=== PATIENT | male | born 1990 | race Caucasian/White ===

== ENCOUNTER 2016-07-12 19:22 | Emergency (ER) | payer OTHER ==
[~2016-07-12 19:22] MED LIST: ASPIRIN CHEWABL81 MG PO; BUMEX 1MG TABLET1 MG PO; COLACE 100MG C100 MG PO; COREG 3.125M3.125 MG PO; COUMADIN 2.5MG2.5 MG PO; ENSURE LIQUID237 ML PO; FUROSEMIDE20 MG PO; HABITROL 14 MG P1 EA TD; LANOXIN TAB0.125 MG PO; LEVAQUIN500 MG PO; LISINOPRIL2.5 MG PO; LOPRESSOR 25 MG25 MG PO; MIRALAX PACK 171 PKT PO; SPIRONOLACTONE25 MG PO; TESSALON PERLE100 MG PO; TOPROL XL50 MG PO; TRAMADOL HCL50 MG PO; TYLENOL 325MG325 MG PO; ULTRAM50 MG PO; ZOFRAN ODT 4 MG4 MG PO
== END 2016-07-12 20:07 | disposition home or self-care (01) ==
LOC: ER1 19:22
DX: K04.7 Periapical abscess without sinus (principal); Z86.79 Personal history of other diseases of the circulatory system; Z95.810 Presence of automatic (implantable) cardiac defibrillator; F17.210 Nicotine dependence, cigarettes, uncomplicated; Z88.0 Allergy status to penicillin; Z79.899 Other long term (current) drug therapy
CPT/HCPCS: 99282

== ENCOUNTER 2016-09-03 17:12 | Inpatient (IN) | payer OTHER ==
[~2016-09-03] VITALS: Ht 185.4 cm; Wt 72.6 kg
[2016-09-03 21:01] LABS: BUN/CREATININE RATIO 19 (0-10)
[2016-09-04 03:27] LABS: HEMOGLOBIN 15.1 gm/dl (14.0-17.5); RED BLOOD COUNT 5.12 M/UL (4.20-5.50)
[2016-09-04 03:35] LABS: BUN/CREATININE RATIO 18 (0-10)
[2016-09-05 04:02] LABS: RED BLOOD COUNT 4.8 M/UL (4.20-5.50)
[2016-09-05 04:03] LABS: WHITE BLOOD COUNT 8.9 K/UL (4.5-11.0)
[2016-09-05 04:16] LABS: BUN/CREATININE RATIO 33 (0-10)
[2016-09-06 03:59] LABS: BUN/CREATININE RATIO 29 (0-10); HEMOGLOBIN 12.8 gm/dl (14.0-17.5); RED BLOOD COUNT 4.36 M/UL (4.20-5.50); WHITE BLOOD COUNT 8.5 K/UL (4.5-11.0)
[2016-09-08 04:30] LABS: HEMOGLOBIN 13.4 gm/dl (14.0-17.5); RED BLOOD COUNT 4.62 M/UL (4.20-5.50); WHITE BLOOD COUNT 6.9 K/UL (4.5-11.0)
[2016-09-08 04:38] LABS: BUN/CREATININE RATIO 23 (0-10)
[2016-09-08] MEDS ORDERED: FLORINEF 0.1 M0.1 MG PO (13:29)
[2016-09-08] MEDS ORDERED: TYLENOL 650 MG650 MG PO (13:32)
[2016-09-08] MEDS ORDERED: FERROUS SULFAT325 M2 PO (13:36)
== END 2016-09-08 17:01 | disposition home or self-care (01) | DRG 309 ==
LOC: CCU 17:12 → M/S 09-07 11:35
PROVIDERS: ADMIT Internal Medicine Infectious Disease
DX: I47.1 Supraventricular tachycardia (principal); I50.22 Chronic systolic (congestive) heart failure; I42.0 Dilated cardiomyopathy; E87.2 Acidosis; R57.9 Shock, unspecified; E87.6 Hypokalemia; E83.42 Hypomagnesemia; F11.10 Opioid abuse, uncomplicated; E87.5 Hyperkalemia; B18.2 Chronic viral hepatitis C; I34.0 Nonrheumatic mitral (valve) insufficiency; D69.59 Other secondary thrombocytopenia; R50.9 Fever, unspecified; R16.1 Splenomegaly, not elsewhere classified; D72.829 Elevated white blood cell count, unspecified; R07.89 Other chest pain; F17.210 Nicotine dependence, cigarettes, uncomplicated; Z91.14 Patient's other noncompliance with medication regimen; Z91.19 Patient's noncompliance with other medical treatment and regimen; Z95.810 Presence of automatic (implantable) cardiac defibrillator; Z79.82 Long term (current) use of aspirin; Z79.899 Other long term (current) drug therapy; Z88.0 Allergy status to penicillin; Z80.1 Family history of malignant neoplasm of trachea, bronchus and lung; Z82.49 Family history of ischemic heart disease and other diseases of the circulatory system
CPT/HCPCS: ECHO; 36415; 71010; 71020; 76705; 80048; 80053; 80074; 80307; 81001; 82550; 82553; 82607; 82728; 82746; 83540; 83550; 83605; 83735; 84484; 85025; 85027; 87040; 87390; 93005; 93306; J1885; J2550; J7030; J7040; J7050

== ENCOUNTER 2020-07-21 01:59 | Emergency (ER) | payer OTHER ==
[~2020-07-21 01:59] MED LIST changes: +BACITRACIN28.4 GM TP; +BACTRIM DS TAB1 EACH PO; +FERROUS SULFAT325 M2 PO; +FLORINEF 0.1 M0.1 MG PO; +TYLENOL 650 MG650 MG PO
[2020-07-21 03:51] LABS: BUN/CREATININE RATIO 12 (0-10)
[2020-07-21 04:31] LABS: HEMOGLOBIN 15.4 gm/dl (14.0-17.5); RED BLOOD COUNT 5.06 M/UL (4.20-5.50); WHITE BLOOD COUNT 7.6 K/UL (4.5-11.0)
== END 2020-07-21 05:54 | disposition home or self-care (01) ==
LOC: ER1 01:59
PROVIDERS: Family Medicine; Physician Assistant Medical
DX: T16.2XXA Foreign body in left ear, initial encounter (principal)
CPT/HCPCS: 71045; 80053; 80162; 80307; 81001; 82550; 82553; 83735; 83874; 83880; 84439; 84443; 84484; 85025; 93005; 96374; 99285; J1940

== ENCOUNTER → 2020-08-30 | Outpatient (CLI) | payer OTHER | LOC: HEART 5 05-21 14:30 | DX: I50.22 Chronic systolic (congestive) heart failure (principal); I42.0 Dilated cardiomyopathy; I08.1 Rheumatic disorders of both mitral and tricuspid valves; I27.20 Pulmonary hypertension, unspecified; Z95.0 Presence of cardiac pacemaker | CPT/HCPCS: 93306 ==

== ENCOUNTER 2020-10-15 02:01 | Emergency (ER) | payer OTHER ==
[2020-10-15 03:07] LABS: HEMOGLOBIN 15.6 gm/dl (14.0-17.5); RED BLOOD COUNT 6.09 M/UL (4.20-5.50); WHITE BLOOD COUNT 11.2 K/UL (4.5-11.0)
== END 2020-10-15 02:11 | disposition expired ==
LOC: ER1 02:01
PROVIDERS: Family Medicine
DX: I46.9 Cardiac arrest, cause unspecified (principal)
CPT/HCPCS: 82803; 85025; 92950; 99285